=== PATIENT | female | born 1955 | race Caucasian/White ===

== ENCOUNTER 2017-01-07 13:09 | Emergency (ER) | payer OTHER ==
[~2017-01-07] VITALS: Ht 167.6 cm; Wt 85.7 kg
--- NOTE | ~2017-01-07 | CR72 ---
[facility] A Service of [facility] & [facility] RADIOLOGY TEXT RESULTS PATIENT: SHAMAR HECK LOCATION: [facility] : 57 UNIT #: [id number] AGE: [address]: Chip Lehman MD SEX: F ORDER DR: [id number] [facility] [address] [place], [place] [address] [id number] MR#: [id number] Acc #: [id number] NAME: SHAMAR HECK : 1955 SEX: F STUDY DATE/TIME: 01/07/2017 14:15 UNIT: [facility] ROOM: STUDY DESCRIPTION: CR Chest Single View Portable Attending Physician: Chip Lehman M.D. Ordering Physician: Chip Lehman M.D. Primary Care Physician: Anthony King M.D. MEDICAL IMAGING REPORT This report is preliminary unless electronic signature is present EXAM Portable chest. INDICATIONS Chest pain for 3 days. COMPARISON 04/03/2016 FINDINGS Lungs are well expanded. No acute infiltrate. Heart size normal. Visualized osseous structures are unremarkable. IMPRESSION No active disease. Dictated by... Levar Garcia M.D. THIS IS AN ELECTRONICALLY VERIFIED REPORT Levar Garcia M.D. at 01/09/2017 5:00 PM CONY/ottoniel TD: 01/08/2017 07:49 JOB #: [id number] MEDICAL IMAGING REPORT Page 1 of 1 COPY
--- NOTE | ~2017-01-07 | EKG ---
PATIENT: SHAMAR HECK UNIT #: [id number] Ventricular Rate: 74 BPM Atrial Rate: 74 BPM P-R Interval: 172 ms QRS Duration: 94 ms Q-T Interval: 396 ms QTC Calculation(Bezet): 439 ms P Lilly: 63 degrees Calculated R Lilly: 71 degrees Calculated T Lilly: 57 degrees Diagnosis Line: Normal sinus rhythm Diagnosis Line: Normal ECG Diagnosis Line: When compared with ECG of 13-MAR-2015 10:22, Diagnosis Line: No significant change was found Diagnosis Line: Confirmed by KENIA NOGUERA MD ([id number]) on Diagnosis Line: 01/07/2017 7:38:28 PM INTERPRETING MD: CHUCKIE BLACK
[~2017-01-07 13:09] MED LIST: ACETAMINOPHEN PO; ASPIRIN PO; ASPIRIN81 M1 PO; ASPIRIN81 M2 PO; ASTELIN; ATIVAN0.5 MG PO; BAYER CHEWABLE81 MG; CETIRIZINE PO; CHEWABLE ASPIRI81 MG PO; CLARITIN10 M3 PO; COZAAR25 MG PO; ESTRADIOL PO; ESTRADIOL1 MG PO; FISH OIL500 M1 PO; FLEXERIL10 MG PO; FLONASE16 GM; GLUCOPHAGE500 M1 PO; GLUCOPHAGE500 MG PO; GLUCOPHAGE850 MG PO; LIPITOR PO; LIPITOR20 MG PO; LISINOPRIL5 MG PO; LOPRESSOR PO; LORTAB 5/500 TA1 TA1 PO; LOSARTAN PO; LOSARTAN POTAS100 MG PO; METFORMIN HCL500 M1; METFORMIN PO; MEVACOR; MONODOX100 MG PO; MUCINEX DM TABL1 BOX PO; NITROSTAT0.4 MG SL; OMNICEF300 M1 PO; PERCOCET 5-3251 TAB PO; PHENERGAN PO; PLAVIX PO; PRAVASTATIN SOD20 MG PO; PRAVASTATIN SOD40 MG PO; PREDNISONE PO; PRINIVIL5 MG PO; PROVENTIL17 GM IH; ROBITUSSIN A-C S5 ML PO; SIMVASTATIN20 MG PO; TESSALON PERLE PO; TOPROL XL PO; ZESTRIL5 MG PO; ZITHROMAX PO; ZOCOR
[2017-01-07 14:01] LABS: BASOPHIL# 0.1 X10e3 (0-0.3); BASOPHIL% 1.1 % (0-2.5); EOSINOPHIL# 0.2 X10e3 (0-0.7); EOSINOPHIL% 3.3 % (0.0-7.0); HEMATOCRIT 39.7 % (35.0-45.0); HEMOGLOBIN 13.3 gm/dL (12.0-16.0); LYMPHOCYTE# 2.2 X10e3 (1.0-3.5); LYMPHOCYTE% 39.8 % (17.0-45.0); MEAN CORPUSCULAR HEMOGLOBIN 29.9 PG (28-34); MEAN CORPUSCULAR HGB CONC 33.6 g/dL (30-36); MEAN PLATELET VOLUME 8.2 FL (6.5-11.5); MONOCYTE# 0.4 X10e3 (0-1.0); MONOCYTE% 8.1 % (3.0-12.0); NEUTROPHIL# 2.6 X10e3 (1.5-7.1); NEUTROPHIL% 47.7 % (40-75); PLATELET COUNT 282 X10e3 (140-420); RED BLOOD COUNT 4.46 X10e (3.90-5.30); RED CELL DISTRIBUTION WIDTH 13.5 % (11.0-15.5); WHITE BLOOD COUNT 5.5 X10e3 (4.0-10.5)
[2017-01-07 14:04] LABS: DIFF IND NO
[2017-01-07 14:07] LABS: POC - CKMB 3.3 ng/mL (0.0-7.9); POC - TROPONIN <0.05 ng/mL (<=0.05)
[2017-01-07 14:25] LABS: ALBUMIN SERUM 4.1 g/dL (3.5-5.0); ALKALINE PHOSPHATASE 66 U/L (32-92); ALT (SGPT) 19 U/L (10-40); AST (SGOT) 22 U/L (10-42); BILIRUBIN, DIRECT <0.1 mg/dL (0.0-0.2); BILIRUBIN,INDIRECT 0.7 mg/dL (0.0-0.9); BILIRUBIN,TOTAL 0.8 mg/dL (0.2-2.0); BLOOD UREA NITROGEN 12 mg/dL (9-23); CALCIUM SERUM 9.2 mg/dL (8.4-10.2); CARBON DIOXIDE 26 mmol/L (22-31); CHLORIDE 104 mmol/L (100-111); GLOM FILT RATE Estimated 61.2 mL/min (>60); GLUCOSE FASTING 184 mg/dL (70-110); POTASSIUM 3.9 mmol/L (3.5-5.1); SODIUM 139 mmol/L (135-145)
== END 2017-01-07 14:53 | disposition home or self-care (01) ==
LOC: CED 13:09
PROVIDERS: Emergency Medicine
DX: R05 Cough (principal); E11.9 Type 2 diabetes mellitus without complications; K21.9 Gastro-esophageal reflux disease without esophagitis; E78.5 Hyperlipidemia, unspecified; I10 Essential (primary) hypertension; F32.9 Major depressive disorder, single episode, unspecified; M79.7 Fibromyalgia; Z90.49 Acquired absence of other specified parts of digestive tract; Z90.710 Acquired absence of both cervix and uterus; Z90.89 Acquired absence of other organs; Z98.890 Other specified postprocedural states; Z86.73 Personal history of transient ischemic attack (TIA), and cerebral infarction without residual deficits; Z95.5 Presence of coronary angioplasty implant and graft
CPT/HCPCS: 36415; 71010; 80048; 80076; 82553; 84484; 85025; 87040; 93005; 99284